=== PATIENT | male | born 1945 | race Caucasian/White ===

== ENCOUNTER 2017-12-23 15:01 | Observation (INO) | payer SELFPAY ==
[2017-12-23] MEDS ORDERED: Acetaminophen 325 MG TAB PO PRN (16:19)
[2017-12-23] MEDS ORDERED: Ondansetron HCl/PF 4 MG/2 ML Vial IVP PRN (16:19)
[2017-12-23] MEDS ORDERED: Ondansetron ODT 4 MG TAB PO PRN (16:19)
[2017-12-23 17:09] LABS: Troponin I Less than 0.010 ng/mL (< 0.028)
[2017-12-23] MEDS ORDERED: Simvastatin 20 MG TAB PO SCH (21:00)
--- NOTE | 2017-12-23 21:54 | HP ---
CHIEF COMPLAINT: Dizziness and vomiting. HISTORY OF PRESENT ILLNESS: This patient is a 72-year-old male who was actually admitted here about 4 years ago for transient global amnesia that lasted for a few hours. It was ultimately attributed t o stress, but at that time, the patient had an echocardiogram which looked basically normal with an E F of 50-55%. He had an MRI of the brain which was unremarkable. He also had carotid Dopplers which had no significant atherosclerotic disease. The patient reports that he is generally healthy. He wa lks about 2 miles per day without any difficulties. He awoke this morning at his usual time around 4 :30. He then had the onset of some nausea, vomiting, and lightheadedness occurring at about 5:30 in the morning. He had several episodes. Initially, he was vomiting some undigested food and then just some dry heaving. He did note that if he was still while in the bathroom, he would get a little bet ter and as he start around, it would get worse. He denied true vertigo. He states he has never felt quite so dizzy or lightheaded before in his life. He had about 4 hours' worth of recurring episodes of this and the last one was around 9:30 this morning. He is now many hours symptom free and report s that he is feeling at baseline and actually hungry. He denied any abdominal pain. He has had no i ll contacts. He has had no food consumption that would be concerning for high suspicion of food pois oning. He has had normal bowel movements. He denied any chest pain, shortness of breath or headache associated with these. The patient presented to [facility]. Th , the patient had a workup including initial vitals with a blood pressure of 173/82, his pulse was 56. Vital signs were otherwise normal. He had a CT of the head which showed some age-related atrop hy and chronic white matter ischemic changes with no evidence of acute intracranial abnormality. He had a normal chest x-ray. LABORATORY DATA: Included white count of 6.3, hemoglobin 15.7, platelets 161. Glucose 144, BUN 15, creatinine 0.5. CK 136, potassium 4.2, sodium 136, chloride 103, CO2 of 29. LFTs were normal. Coag s were normal. Urinalysis is normal. Troponin was less than 0.05. Patient was given some fluids, Z ofran and aspirin. There was some concern about the possibility of some posterior circulatory diseas e and therefore, the patient was transferred here for further evaluation. Again, at the time of my e valuation, the patient has been symptom-free for 7 hours. PAST MEDICAL HISTORY: Notable for above-mentioned hypertension. FAMILY HISTORY: His father lived to be into his 80s. He had some adult-onset diabetes. His mother had no significant medical problems and lived to be 99. SOCIAL HISTORY: The patient is a nonsmoker. He drinks alcohol only socially. No drug use. He is m arried. His would be his surrogate decision maker and he is a F[employer]. REVIEW OF SYSTEMS: Completely negative through a 10-system review other than those things mentioned in the history of present illness. PHYSICAL EXAMINATION: VITAL SIGNS: Temperature 98.3, pulse 54, respirations 17, O2 sat 95% on room air, BP 157/85. GENERAL APPEARANCE: A very healthy male who appears younger than stated age. He is in no acute dist ress. He is awake, alert, oriented, conversant. HEENT: Pupils are reactive. He has no OP lesions. NECK: Supple and symmetric. No lymphadenopathy, JVD, or carotid bruits. CARDIOVASCULAR: Heart has regular rate and rhythm without murmurs, gallops or rubs. LUNGS: Clear to auscultation bilaterally with good chest wall expansion and air exchange. ABDOMEN: Soft, nontender, nondistended, positive bowel sounds, no masses, no organomegaly. EXTREMITIES: Warm and dry. NEUROLOGIC: Cranial nerves II-XII appear to be fully intact. Peripherally, he has normal sensation and normal strength throughout. IMPRESSION AND PLAN: 1. Dizziness with vomiting. At this point, my suspicion is the patient likely has suffered some typ e of viral gastroenteritis with some associated dizziness. We will nonetheless evaluate with serial troponins, telemetry and get a CTA of the head and neck in the morning. If he remains asymptomatic a nd he is able to eat and function normally and these tests are negative, anticipate discharge to foll ow up with his primary care provider who can then direct him if he wants to have any further evaluati on at that time. Fortunately, the inside of his previous workup from 4 years ago in which everything looked pretty good. The patient really has minimal risk factors for progressive disease since that time. I discussed this at length with the patient. He is comfortable with that plan. 2. Hypertension. We will continue with his usual home medications.
[2017-12-23] MEDS ORDERED: diphenhydrAMINE 25 MG CAP PO PRN (21:59)
[2017-12-23 23:00] LABS: Troponin I Less than 0.010 ng/mL (< 0.028)
[2017-12-24] MEDS: Promethazine HCl 25 MG/ML VIAL SLOW IVP PRN ×2 (01:27→09:26)
[2017-12-24 04:54] LABS: #Lymphocytes 0.7 thou/uL (1.20-3.40); #Monocytes 0.4 thou/uL (0.11-0.59); %Basophils 0.2 % (0.0-1.0); %Eosinophils 0.3 % (0.0-10.0); %Lymphocytes 7.4 % (21.0-51.0); %Monocytes 4.6 % (0.0-10.0); %Neutrophils 87.5 % (42.0-75.0); Hemoglobin 15.4 g/dL (14.0-18.0); Mean Corpuscular Hemoglobin 32.4 pg (27.0-31.0); Mean Corpuscular Volume 95.4 fL (78.0-98.0); Mean Platelet Volume 7.5 fL (7.4-10.4); Platelet Count 163 thou/uL (130-400); RBC Distribution Width 13.2 % (11.5-14.5); Red Blood Cell (RBC) Count 4.75 mill/uL (4.70-6.10); White Blood Cell (WBC) Count 9.1 thou/uL (4.8-10.8)
[2017-12-24 05:04] LABS: Anion Gap 12 mmol/L (10-20); BUN (Urea Nitrogen) 16 mg/dL (8.4-25.7); Calc. Creatinine Clearance 101 mL/min (70-130); Calcium 9.1 mg/dL (7.8-10.44); Carbon Dioxide 27 mmol/L (23-31); Chloride 106 mmol/L (98-107); Estimated GFR-MDRD Greater than 90; Glucose 108 mg/dL (83-110); Potassium 4.2 mmol/L (3.5-5.1); Sodium 141 mmol/L (136-145)
[2017-12-24 05:26] VITALS: BMI 24.0
--- NOTE | 2017-12-24 08:02 | RAD ---
PORTABLE SUPINE ABDOMEN: HISTORY: Abdominal pain with vomiting. FINDINGS: Bowel gas pattern unremarkable. No evidence of soft tissue mass. Aortic calcification is noted. Os seous structures unremarkable. IMPRESSION: No acute findings. POS: [facility]
[2017-12-24] MEDS ORDERED: Lisinopril 10 MG TAB PO SCH (09:00)
[2017-12-24] MEDS: Lisinopril 20 MG TAB PO SCH (09:24)
[2017-12-24] MEDS: Atenolol 50 MG TAB PO SCH (09:24)
[2017-12-24] MEDS ORDERED: Meclizine HCl 25 MG TAB PO SCH (09:30)
--- NOTE | 2017-12-24 11:22 | CT ---
HEAD CT ANGIOGRAM INCLUDING 3D RENDERING NECK CT ANGIOGRAM INCLUDING 3D RENDERING: HISTORY: A 72-year-old male with a history of vertigo and vomiting, sweating with nausea. COMPARISON: Brain MRI 01/09/14, brain CT 01/09/14. FINDINGS: Stable atrophy and chronic white matter ischemic change. No focal mass or midline shift. No intra- or extraaxial hemorrhage. Sinuses and mastoids are clear of acute process, and there is some very mi ld sinus mucosal disease. Some very minute atherosclerotic changes within the intracranial internal carotid arteries. No evide nce for significant stenosis or occlusion. No evidence for intracranial aneurysm. IMPRESSION: Unremarkable brain CT angiogram. No evidence for significant stenosis or occlusion or aneurysm. NECK CT ANGIOGRAM INCLUDING 3D RENDERING: Scattered calcific plaques are noted bilaterally. No evidence for hemodynamically significant stenos is involving either right or left common, or internal, or external carotid arteries or vertebral jase betsy within the neck. Generalized spondylosis of the cervical spine with extensive disk-osteophyte. Atherosclerotic changes of the aortic arch with some aortic calcific changes with some dilatation of the visualized ascending aorta up to 4.7 cm in transverse diameter. IMPRESSION: No evidence for significant stenosis or occlusive disease involving the common, external, internal ca rotid arteries, and vertebral arteries. Atherosclerosis with some small calcific plaques. Dilatatio n of the ascending aorta up to 4.7 cm transversely. POS: [facility]
[2017-12-24] MEDS: Meclizine HCl 25 MG TAB PO SCH ×2 (14:53→20:45)
--- NOTE | 2017-12-24 15:58 | MRI ---
MRI BRAIN WITHOUT CONTRAST: Date: 12/24/17 HISTORY: Dizziness. Evaluate for posterior circulation CVA. COMPARISON: None. TECHNIQUE: Brain MRI is performed without intravenous Gadolinium administration. Multisequential, multiplanar im aging is performed. FINDINGS: Calvarium has a normal T1 marrow signal intensity. Midline brain parenchymal structures are unremarka ble. Note is made of a partially empty sella. No hemorrhage on the axial gradient echo sequence. No parenchymal mass, mass effect, or midline shift. Age-appropriate atrophy. Cortical sommers-white roni er differentiation is preserved. Ventricles and sulci are patent and symmetric. T2 and FLAIR white matter hyperintensities due to chronic small vessel ischemic changes are noted. Mild mucosal thickening of the paranasal sinuses. Adequate mastoid air cell aeration. Central arterial flow-voids are maintained. Absent restricted diffusion. IMPRESSION: Absent restricted diffusion. No MR evidence of a posterior circulation infarction. POS: [facility]
--- NOTE | 2017-12-24 16:24 | PDOC.PN ---
- Subjective Encounter Start Date: 12/24/17 Encounter Start Time: 16:24 Pt seen for followup re: vertigo. Reports mild improvement with meclizine. No vomiting. - Objective Resuscitation Status: Resuscitation Status FULL:Full Resuscitation Vital Signs & Weight: Vital Signs (12 hours) Temp Pulse Resp BP Pulse Ox 12/24/17 16:00 98.5 F 50 L 16 125/82 96 12/24/17 12:00 98.9 F 57 L 16 143/85 H 96 12/24/17 09:24 58 L 12/24/17 08:02 98.5 F 58 L 20 12/24/17 07:49 98.5 F 58 L 20 152/90 H 95 Weight Weight 187 lb 4.8 oz I&O: 12/23/17 12/24/17 12/25/17 06:59 06:59 06:59 Intake Total 750 Output Total 200 Balance 550 Result Diagrams: 12/24/17 04:03 12/24/17 04:03 Phys Exam - Physical Examination Constitutional: NAD HEENT: moist MMs Neck: supple Respiratory: clear to auscultation bilateral Cardiovascular: RRR Gastrointestinal: soft Neurological: non-focal Psychiatric: normal affect Dx/Plan (1) Vertigo Code(s): R42 - DIZZINESS AND GIDDINESS Status: Acute Comment: likely due to peripheral causes, continue meclizine (2) HTN (hypertension) Code(s): I10 - ESSENTIAL (PRIMARY) HYPERTENSION Status: Chronic Comment: add PRN IV hydralazine - Plan * . Review of Systems - Review of Systems Constitutional: negative: fever, chills, sweats, weakness, malaise Cardiovascular: negative: chest pain, palpitations, orthopnea, paroxysmal nocturnal dyspnea, edema, light headedness Neurological: Other (vertigo) - Medications/Allergies Allergies/Adverse Reactions: Allergies Allergy/AdvReac Type Severity Reaction Status Date / Time No Known Allergies Allergy Verified 12/23/17 16:04 Medications: Current Medications Acetaminophen (Tylenol) 650 mg PO Q4H PRN PRN Reason: Headache/Fever or Pain Atenolol (Tenormin) 50 mg PO DAILY [facility] Last Admin: 12/24/17 09:24 Dose: 50 mg Lisinopril (Zestril) 20 mg PO DAILY [facility] Last Admin: 12/24/17 09:24 Dose: 20 mg Meclizine HCl (Antivert) 25 mg PO Q8HR [facility] Last Admin: 12/24/17 14:53 Dose: 25 mg Ondansetron HCl (Zofran Odt) 4 mg PO Q6H PRN PRN Reason: Nausea/Vomiting Ondansetron HCl (Zofran) 4 mg IVP Q6H PRN PRN Reason: Nausea/Vomiting Last Admin: 12/24/17 00:14 Dose: 4 mg Promethazine HCl (Phenergan) 12.5 mg SLOW IVP Q6H PRN PRN Reason: .VOMITING Last Admin: 12/24/17 09:26 Dose: 12.5 mg
[2017-12-24] MEDS ORDERED: hydrALAZINE 20 MG/ML VIAL SLOW IVP PRN (16:27)
[2017-12-24] MEDS ORDERED: predniSONE 20 MG TAB PO SCH (16:45)
--- NOTE | 2017-12-24 19:07 | CON ---
DATE OF CONSULTATION: 12/24/2017 CONSULTING PHYSICIAN: Hospitalist Service. IMPRESSION: 1. Peripheral vertigo. 2. Hypertension. 3. Bradycardia. PLAN: 1. Prednisone 40 mg per day for 3 days. 2. Meclizine as needed. 3. The patient can be discharged home. HISTORY OF PRESENT ILLNESS: Mr. Sesay is a 72-year-old man who came in with complaints of acute ons et of vertigo with nausea and vomiting. He is also experiencing some oscillopsia. He had a CT angio gram, which was unremarkable. Initial lab work was all unremarkable as well. He had an MRI of the b rain, which failed to reveal any evidence of acute ischemic changes. He is without any focal complai nts such as weakness or numbness. He denies any headache, acute onset of hearing loss, change in tin nitus, slurred speech, or difficulty swallowing. PAST MEDICAL HISTORY: As listed above. ALLERGIES: None reported. SOCIAL HISTORY: No tobacco or illicit drug use. FAMILY HISTORY: Noncontributory. REVIEW OF SYSTEMS: No complaints of chest pain, shortness of breath, lateralized weakness, or numbne ss. PHYSICAL EXAMINATION: GENERAL: He is a tall, thin, elderly man in no distress. VITAL SIGNS: Blood pressure 143/85, pulse 57, respirations 16, temperature 98.9. HEENT: Pupils equal and reactive. Conjunctivae are clear. Oropharynx is clear. NECK: Supple. EXTREMITIES: No cyanosis, clubbing, or edema. NEUROLOGIC: He is alert and appropriate. His speech is fluent and clear. Cranial nerves are intact . There is some prominent rotary nystagmus in left gaze. Motor exam shows symmetric strength. Ther e was no fix or drift. Cerebellar testing showed normal [id number] and rapid alternating movemen ts. Sensation is intact. Gait was not tested. No abnormal movements were seen. LABORATORY STUDIES: Unremarkable CBC and basic chemistry panel. SUMMARY: This is a 72-year-old gentleman with acute vertigo with nausea and vomiting, what appeared to be a peripheral vertigo. It might possibly respond to steroids. He can follow up with ENT as an outpatient.
[2017-12-25] MEDS: Meclizine HCl 25 MG TAB PO SCH (05:02)
[2017-12-25 08:29] VITALS: BP 173/88; TEMP 98.3
[2017-12-25] MEDS: Lisinopril 20 MG TAB PO SCH (08:39)
[2017-12-25] MEDS: Atenolol 50 MG TAB PO SCH (08:40)
--- NOTE | 2017-12-25 16:04 | DIS ---
DATE OF ADMISSION: 12/23/2017 DATE OF DISCHARGE: 12/25/2017 ADMITTING DIAGNOSIS: Severe dizziness. DISCHARGE DIAGNOSIS: Benign positional vertigo. SECONDARY DIAGNOSES 1. Hypertension. 2. Dilatation of aorta. INVESTIGATIONS DONE DURING THIS ADMISSION: MRI of the brain showing no evidence of any infarction or any tumor. No posterior circulation defects. CT angiography was done which showed an evidence of 4 .7 cm of the aortic dilatation with no evidence of any aneurysm rupture or dissection was noted. CONSULTANTS INVOLVED IN THE CARE: Dr. Cristian Anand. HISTORY OF PRESENT ILLNESS AND HOSPITAL COURSE: In brief, this is a 72-year-old white male who prese nted to the hospital with a history of transient global amnesia 4 years ago and following this for th e past few days he was having some dizziness, which is more on sudden movement. The patient came to the ER. He had a CT of the head which was unremarkable, so patient had elevated blood pressures, so patient was being evaluated for a stroke and MRI of the brain was done which did not show any evidenc e of posterior circulation defects. Neurology was consulted who suggested the patient could possibly have a benign positional vertigo and he was started on meclizine as needed for dizziness. Patient a lso had a CTA which showed no evidence of enlarged ascending aorta of 4.7 cm, suggested the patient t o follow up with Cardiology for this and also suggested the patient has poorly controlled blood press ures. He was on lisinopril of 10 mg. Advised to increase to 40 mg on day of discharge. The patient was also started on p.o. steroids by Neurology 40 mg, advised to take for 3 days. This i s for benign positional vertigo as there is an evidence of improvement with steroids. PHYSICAL EXAMINATION: On date of discharge: VITAL SIGNS: Blood pressure is 141/80, heart rate is 50, respiratory rate 18, saturation 96%. GENERAL: The patient is moderately built and moderately nourished, does not appears to be in acute d istress at this time. Alert, oriented x3. HEENT: Atraumatic, normocephalic, PERRLA. Extraocular movements are intact. Oral mucosa pink and mo ist. CARDIOVASCULAR: S1, S2 normal. No murmurs, rubs or gallops. LUNGS: Bilateral air entry was equal. No wheezing, no crackles. EXTREMITIES: No calf tenderness. No pedal edema. No joint tenderness. No joint swelling. SKIN: No cyanosis, no erythema, no rash, no pallor. HOME MEDICATIONS: Atenolol 50 mg p.o. daily, lisinopril 40 mg p.o. daily, meclizine 25 mg p.o. q.8 h ours p.r.n., ondansetron as needed for nausea, prednisone 40 mg p.o. daily, continue for 2 more days. DISCHARGE INSTRUCTIONS: Continue activity as tolerated. Advised to follow up with primary care phys ician in 1-2 weeks. Advised to follow up with Cardiology in 2 weeks for aortic dilatation 4.7 cm. Follow up with Neurology in 1-2 weeks and if no relief with dizziness, advised to follow up with ENT. I spent 35 minutes with this patient.
== END 2017-12-25 11:19 | disposition home or self-care (01) ==
LOC: 2SE 15:01
PROVIDERS: ADMIT Internal Medicine; ATTEND Internal Medicine
DX: R42 Dizziness and giddiness (principal); I10 Essential (primary) hypertension; Z79.899 Other long term (current) drug therapy
CPT/HCPCS: 36415; 70496; 70498; 70551; 74018; 80048; 84484; 85025; 96374; 96375; 96376; G0378; J2405; J2550; J7506

== ENCOUNTER 2018-10-22 08:43 | Outpatient (CLI) | payer MEDICARE ==
--- NOTE | 2018-10-22 11:12 | ULT ---
RENAL ULTRASOUND: 10/22/2018 PROVIDED CLINICAL HISTORY: Renal cyst. COMPARISON: None. FINDINGS: The right kidney measures about 15.6 x 5.5 x 6.9 cm and demonstrates no evidence for hydronephrosis o r solid mass. A simple appearing 4.9 cm cyst involves the inferior aspect of the right kidney. The left kidney measures about 11.7 x 6.2 x 5.8 cm and demonstrates no evidence for hydronephrosis or solid mass. A 1.2 cm, exophytic, simple appearing left renal cyst is seen involving the superior po le. The urinary bladder is decompressed and not well evaluated. IMPRESSION: 1. No evidence for hydronephrosis. 2. Simple appearing bilateral renal cysts. POS: [facility]
== END 2018-10-22 08:44 | disposition home or self-care (01) ==
LOC: BICULT 08:43
PROVIDERS: ATTEND Internal Medicine Nephrology
DX: N18.2 Chronic kidney disease, stage 2 (mild) (principal); N28.1 Cyst of kidney, acquired
CPT/HCPCS: 76770

== ENCOUNTER 2019-11-05 13:41 | Outpatient (CLI) | payer MEDICARE ==
--- NOTE | 2019-11-05 14:38 | ULT ---
Renal sonogram HISTORY: Renal cysts. Follow-up. COMPARISON: 10/22/2018. FINDINGS: Right kidney measures up to 15.0 cm with diffuse cortical thinning. Cyst at the inferior po le measures 4.5 cm x 4.2 cm x 3.7 cm greatest diameters on today's exam. No hydronephrosis. Left kidney measures up to 11.8 cm length. At the superior pole, a simple cyst is 1.4 cm x 1.2 cm x 1 .2 cm greatest diameters. No hydronephrosis. Urinary bladder is normal with bilateral ureteral jets seen. IMPRESSION : Stable sonographic appearance of bilateral renal cysts. No new abnormalities.
== END 2019-11-05 13:42 | disposition home or self-care (01) ==
LOC: BICULT 13:41
PROVIDERS: ATTEND Internal Medicine Nephrology
DX: N28.1 Cyst of kidney, acquired (principal)
CPT/HCPCS: 76770